=== PATIENT | female | born 1950 | race Caucasian/White ===

== ENCOUNTER → 2019-02-28 | Outpatient (CLI) | payer MEDICARE, OTHER ==
[~2019-02-28] MED LIST: ADVAIR 250-501 EACH IH; ASPIR 8181 MG PO; CENTRUM SILVER1 EAC3 PO; FML5 ML; GLIPIZIDE5 MG PO; JANUMET XR 1001 EACH PO; LISINOPRIL10 MG PO; METOPROLOL SUCC25 MG PO; OS-CAL 500+D T1 EACH PO; SERTRALINE HCL50 MG PO; SIMVASTATIN20 MG PO; TURMERIC/CURCUMIN PO; VITAMIN B-121000 MCG PO; ZEGERID 20 MG1 EACH PO
== END ==
LOC: MAMMO 14:09
PROVIDERS: ATTEND Internal Medicine
DX: Z12.31 Encounter for screening mammogram for malignant neoplasm of breast (principal)
CPT/HCPCS: 77067